=== PATIENT | female | born 1990 | race Caucasian/White ===

== ENCOUNTER 2016-11-27 05:01 | Inpatient (IN) ==
[2016-11-27] MEDS ORDERED: LR 1,000 ML IV SCH (05:02)
[2016-11-27] MEDS: LR 1,000 ML IV SCH ×2 (05:20→06:25)
[2016-11-27] MEDS ORDERED: CLINDAMYCIN 900 MG/NS 900 MG/50 ML IVPB IV ONE (05:24)
[2016-11-27] MEDS ORDERED: BICITRA PO ONE (05:26)
[2016-11-27] MEDS ORDERED: SODIUM CHLORIDE 0.9% INJ ONE (05:26)
[2016-11-27] MEDS ORDERED: PEPCID IV ONE (05:26)
[2016-11-27] MEDS ORDERED: DURAMORPH ONE ×2 (06:31→06:39)
[2016-11-27] MEDS ORDERED: TORADOL ONE (06:33)
[2016-11-27] MEDS ORDERED: ZOFRAN ONE (06:33)
[2016-11-27] MEDS ORDERED: PITOCIN ONE (06:33)
[2016-11-27 06:40] LABS: MANUAL DIFF NEEDED? NO
[2016-11-27 06:47] LABS: URINE SOURCE VOIDED
[2016-11-27 06:53] LABS: BASO% 0.1 % (0.0-0.8); EOS# 0.05 X1000 (0.0-0.7); EOS% 0.4 % (0.0-10.0); HEMATOCRIT 35.3 % (37.0-47.0); HEMOGLOBIN 11.5 g/dL (12.0-16.0); IMM GRAN# 0.04 X1000 (0.0-0.04); IMM GRAN% 0.3 % (0.0-0.5); LYMPH# 3.22 X1000 (1.2-3.4); LYMPH% 24.7 % (20.5-51.1); MCH 27.1 PG (27-31); MCHC 32.6 g/dL (33-37); MCV 83.3 FL (81-99); MONO# 0.83 X1000 (0.11-0.59); MONO% 6.4 % (1.7-9.3); MPV 12.1 FL (7.4-10.4); NEUT% 68.1 % (42.2-75.2); PLT 236 X1000 (130-400); RBC 4.24 XMIL (4.2-5.4)
[2016-11-27 06:55] LABS: UR AMPHETAMINES QUAL NONE DETECTED (NONE DETECT); UR BARBITUATES QUAL NONE DETECTED (NONE DETECT); UR BENZODIAZEPIN QUAL NONE DETECTED (NONE DETECT); UR CANNABINOIDS QUAL NONE DETECTED (NONE DETECT); UR COCAINE QUAL NONE DETECTED (NONE DETECT); UR MDMA QUAL NONE DETECTED (NONE DETECT); UR METHADONE QUAL NONE DETECTED (NONE DETECT); UR METHAMPHETAMINE QUAL NONE DETECTED (NONE DETECT); UR OPIATES QUAL NONE DETECTED (NONE DETECT); UR OXYCODONE QUAL NONE DETECTED (NONE DETECT); UR PCP QUAL NONE DETECTED (NONE DETECT); UR TCA QUAL NONE DETECTED (NONE DETECT)
[2016-11-27] MEDS ORDERED: PERCOCET-5 PO PRN (07:30)
[2016-11-27] MEDS ORDERED: AMBIEN PO PRN (07:30)
[2016-11-27] MEDS ORDERED: CYTOTEC PO PRN (07:30)
[2016-11-27] MEDS ORDERED: DEMEROL IM PRN (07:30)
[2016-11-27] MEDS ORDERED: PITOCIN 10 UNITS/LR 10 UNIT/1,000 ML IV.SOLN IV SCH (07:30)
[2016-11-27] MEDS ORDERED: BOOSTRIX VACCINE IM ONE (07:30)
[2016-11-27] MEDS ORDERED: HYDROXYZINE IM PRN (07:30)
[2016-11-27] MEDS ORDERED: NORCO-10 PO PRN (07:30)
[2016-11-27] MEDS ORDERED: HYDROXYZINE PO PRN (07:30)
[2016-11-27] MEDS ORDERED: PHENERGAN IM PRN (07:30)
[2016-11-27] MEDS ORDERED: PITOCIN IM PRN (07:30)
[2016-11-27] MEDS ORDERED: DULCOLAX PR PRN (07:30)
[2016-11-27] MEDS ORDERED: DEMEROL PO PRN ×2 (07:30)
[2016-11-27] MEDS ORDERED: NORCO-5 PO PRN (07:30)
[2016-11-27] MEDS ORDERED: M-M-R II VACCINE SUBQ ONE (07:30)
[2016-11-27] MEDS ORDERED: PITOCIN 20 UNITS/LR 20 UNITS/1,000 ML IV.SOLN IV ONE (07:30)
[2016-11-27] MEDS: TORADOL IV SCH ×3 (08:00→19:53)
[2016-11-27] MEDS ORDERED: PITOCIN 20 UNITS/LR 40 UNITS/2,000 ML IV.SOLN ONE (08:21)
[2016-11-27] MEDS ORDERED: ZOFRAN IV PRN ×2 (08:53)
[2016-11-27] MEDS ORDERED: ZOFRAN ODT PO PRN (08:53)
[2016-11-27] MEDS ORDERED: NARCAN INJ PRN (08:53)
[2016-11-27] MEDS ORDERED: BENADRYL IV PRN (08:53)
[2016-11-27] MEDS ORDERED: MORPHINE IV PRN (08:54)
[2016-11-27] MEDS ORDERED: TORADOL IV PRN (08:54)
[2016-11-27] MEDS: MYLICON PO SCH ×6 (10:19→22:41)
--- NOTE | 2016-11-27 10:27 | OPERATIVE NOTE ---
PROCEDURE DATE: 11/27/2016 PREOPERATIVE DIAGNOSIS: Interim at 39 weeks. Previous section. Desires repeat. POSTOPERATIVE DIAGNOSIS: Interim at 39 weeks. Previous section. Desires repeat. PROCEDURE: Repeat low transverse section. SURGEON: Vivek Alvarado MD. SILK SCREEN OPERATOR: MAXIMUS Padilla. ANESTHESIA: Spinal per Hector Taylor MD. ESTIMATED BLOOD LOSS: 800 mL. DRAINS: Mabry catheter. FINDINGS: A male infant was delivered in cephalic position at 7:41 a.m. weighing 7 pounds 4 ounces. Apgars of 8 and 10 at one and five minutes respectively. DESCRIPTION OF PROCEDURE IN DETAIL: Patient taken to the operating room, was prepped and draped in the usual fashion. After spinal anesthetic was administered, adequate anesthetic level was obtained. A time-out was performed and everyone in the room in agreement with the stated procedure. A Pfannenstiel incision was carried out with a scalpel in the usual fashion. The fascia was nicked in midline in the usual fashion. Fascia was taken down off underlying rectus muscles with Keaton clamps and Anderson scissors. The peritoneum was bluntly entered and inserted under direct visualization with Anderson scissors. Bladder blade was placed in the peritoneal reflection. The bladder was taken down with Metzenbaum scissors. Uterus scored in low transverse fashion. Amniotic membranes were ruptured and clear fluid noted. head and torso were easily delivered. was placed on his abdomen. Cord was clamped and cut. Baby bulb suctioned, handed to awaiting Pediatric Team for further assessment. The placenta was delivered and uterus externalized. Excellent uterine tone was encountered. Uterine incision was closed with #1 Biosyn in a running locking fashion followed by #1 Biosyn in an imbricating fashion. Excellent hemostasis noted. The uterus was returned to the abdominoperitoneal cavity where pericolic gutters were swept clean of blood clots after copious irrigation was used. Good hemostasis noted. All counts were correct. The peritoneum was reapproximated with #1 chromic in a running fashion. The subcutaneous fat was copiously irrigated. Hemostasis with electrocautery. There was a fair amount of oozing noted, so a large piece of Gelfoam was placed and this was oversewn with the fascia using #1 Biosyn starting in the midline. The subcutaneous fat was copiously irrigated. Hemostasis with electrocautery. The subcutaneous fat was closed in two layers using 3-0 Polysorb in a running fashion. The skin was closed with 3-0 Biosyn in a subcuticular fashion. Patient taken to the recovery room. cc: Vivek Alvarado MD
--- NOTE | 2016-11-27 10:59 | HISTORY AND PHYSICAL ---
HISTORY: The patient is a 26-year-old white female, 2, para 1, 0-0-1 with an estimated gestational age of 39 weeks for repeat section. care has been uncomplicated. Previous section was for failure to progress. Previous was complicated by hypertension. PAST MEDICAL HISTORY: Scoliosis. Gestational hypertension. PAST SURGICAL HISTORY: section. Cholecystectomy. ALLERGIES: Penicillin. SOCIAL HISTORY: The patient is a nonsmoker. PHYSICAL EXAMINATION: GENERAL: White female in no apparent distress and stable. CARDIOVASCULAR: Regular rate and rhythm. No murmurs or rubs. ABDOMEN: Soft, nontender. Cervix closed. PLAN: The patient is to have a repeat section. Risks of surgery including bleeding, infection, damage to organs, anesthesia, blood transfusion all discussed at length. Informed Consent obtained. cc: Vivek Alvarado MD
[2016-11-27] MEDS: PERICOLACE PO SCH (20:34)
[2016-11-28] MEDS: TORADOL IV SCH (01:30)
[2016-11-28 05:15] LABS: MANUAL DIFF NEEDED? NO
[2016-11-28 06:12] LABS: BASO% 0.1 % (0.0-0.8); EOS# 0.11 X1000 (0.0-0.7); EOS% 1.3 % (0.0-10.0); HEMATOCRIT 27.5 % (37.0-47.0); HEMOGLOBIN 8.7 g/dL (12.0-16.0); IMM GRAN# 0.01 X1000 (0.0-0.04); IMM GRAN% 0.1 % (0.0-0.5); LYMPH# 1.98 X1000 (1.2-3.4); MCH 26.7 PG (27-31); MCHC 31.6 g/dL (33-37); MCV 84.4 FL (81-99); MONO# 0.44 X1000 (0.11-0.59); MONO% 5.1 % (1.7-9.3); NEUT% 70.4 % (42.2-75.2); PLT 160 X1000 (130-400); RBC 3.26 XMIL (4.2-5.4)
[2016-11-28] MEDS ORDERED: LR 1,000 ML IV SCH (07:30)
[2016-11-28] MEDS: PERCOCET-10 PO PRN ×4 (09:38→21:07)
[2016-11-28] MEDS: MOTRIN PO PRN ×2 (09:38→17:15)
[2016-11-28] MEDS: MYLICON PO SCH ×4 (09:38→21:07)
--- NOTE | 2016-11-28 11:09 | PROGRESS NOTE ---
DATE: 11/28/2016 SUBJECTIVE: She is and postop day 1. She underwent a repeat delivery yesterday morning. She is without complaints this morning. Vital signs are stable. She is afebrile. OBJECTIVE: General: Physical exam is within normal limits. She is alert, cooperative and in no distress. Abdomen: Slightly tender, distended. Incision still was bandaged, but there is no redness at the edges and there is no blood on the bandage. The patient encouraged to take this off. Vital Signs: Stable. She is afebrile. Neck: Supple. Lungs: Clear. Heart: Regular sinus rhythm. Extremities: There is +2 lower extremity edema. LABS: Hemoglobin 8.7. ASSESSMENT: day 1. PLAN: Routine care with probable discharge in the morning. cc: MD Vivek Kearney MD
[2016-11-28] MEDS: PERICOLACE PO SCH (21:07)
[2016-11-29] LABS: BILIRUBIN URINE NEGATIVE (NEGATIVE); BLOOD URINE TRACE (NEGATIVE); CLARITY SL. CLOUDY (CLEAR); COLOR YELLOW; GLUCOSE URINE NEGATIVE (NEGATIVE); LEUKOCYTES URINE 2+ (NEGATIVE); NITRITE URINE NEGATIVE (NEGATIVE); PROTEIN URINE NEGATIVE (NEGATIVE); SP GRAVITY URINE 1.015; UROBILINOGEN URINE NORMAL
[2016-11-29] MEDS: PERCOCET-10 PO PRN ×5 (01:19→21:58)
[2016-11-29] MEDS: MOTRIN PO PRN ×3 (01:19→17:41)
[2016-11-29] MEDS: MYLICON PO SCH ×4 (08:30→21:58)
--- NOTE | 2016-11-29 10:34 | PROGRESS NOTE ---
DATE: 11/29/2016 She is postop day 2. Vital signs are stable. She is afebrile. She states she is doing well except that she had problems with her leg yesterday where he knee locked in a flexed position. This is just sore today and she does not feel like she can go home with her knee being sore. She anticipates going home in the morning. Her vital signs are stable. She is afebrile. She is alert and cooperative, in no distress. Neck is supple. Lungs are clear. Heart is regular sinus rhythm. Abdomen is distended. Incision is dry and intact. No new laboratory values. ASSESSMENT: day 2. PLAN: Expectant management today, discharge in the morning. cc: MD Vivek Kearney MD
[2016-11-29] MEDS: MYLICON PO PRN (16:19)
[2016-11-29] MEDS: PERICOLACE PO SCH (21:58)
[2016-11-30] MEDS: MOTRIN PO PRN ×2 (01:30→09:36)
[2016-11-30] MEDS: PERCOCET-10 PO PRN ×2 (01:30→09:36)
--- NOTE | 2016-11-30 07:09 | DISCHARGE SUMMARY ---
ADMISSION DATE: 11/27/2016 DISCHARGE DATE: 11/30/2016 ADMITTING DIAGNOSES: 1. Term . 2. Previous section, requesting repeat section. PRINCIPAL DIAGNOSES: 1. Term . 2. Previous section, requesting repeat section. PRINCIPAL PROCEDURE: Repeat low transverse section. HISTORY OF PRESENT ILLNESS AND HOSPITAL COURSE: In summary, Michelle Walker is a 26-year-old, 2, para 1-0-0-1, at term gestation. She previously had a section and was requesting a repeat . She was admitted to the hospital by Dr. Alvarado on 11/27/2016 and he performed a repeat low transverse , delivering a male infant weighing 7 pounds and 4 ounces. Apgars were 8 at one minute and 10 at five minutes. There were no intraoperative complications. Following delivery, the patient did well. She remained afebrile and all vital signs were stable. She had an admission hemoglobin and hematocrit of 11.5 and 35.2 with discharge hemoglobin and hematocrit being 8.7 and 27.5. On the day of discharge, cardiac and pulmonary examinations were normal. Bowel and bladder function was normal. She was ambulating without difficulty. Ms. Walker is being discharged today and will be seen back in the office at the end of the week. Routine discharge instructions, activity limitations, and precautions were discussed. She will continue taking her vitamins and she was given prescriptions for Motrin 800 mg and Percocet 10 mg #30 for postoperative pain. cc: MD Vivek Boyle MD
[2016-11-30] MEDS: MYLICON PO PRN (07:44)
[2016-11-30] MEDS: MYLICON PO SCH (09:36)
[2016-12-10 12:41] VITALS: BP 110/66
== END 2016-11-30 11:10 | disposition home or self-care (01) ==
LOC: P.LD 05:01
PROVIDERS: ADMIT Obstetrics & Gynecology; ATTEND Obstetrics & Gynecology